=== PATIENT | male | born 1955 | race Two or more races ===

== ENCOUNTER 2024-03-01 09:55 | Inpatient (IN) | payer BC, MEDICAID ==
[~2024-03-01] VITALS: Ht 167.6 cm; Wt 76.2 kg
[2024-03-01] MEDS: SODIUM CHLORIDE 0.9% 1,000 ML IV ONE (10:24)
[2024-03-01 10:44] LABS: Basophils # (auto) 0 10 ^3/uL (0-0.2); Basophils % (auto) 0.6 % (0.0-2.0); Eosinophils # (auto) 0.1 10 ^3/uL (0-0.8); Eosinophils % (auto) 1.4 % (0.0-7.0); Hematocrit 46.5 % (41.0-53.0); Hemoglobin 15.8 g/dL (13.5-17.5); Lymphocytes # (auto) 1.7 10 ^3/uL (0.4-5.4); Lymphocytes % (auto) 23.4 % (10.0-50.0); Mean Corpuscular Hemoglobin 31.8 pg (28.0-32.0); Mean Corpuscular Volume 93.4 fL (80.0-100.0); Monocytes # (auto) 0.4 10 ^3/uL (0-1.3); Monocytes % (auto) 5.7 % (0.0-12.0); Neutrophils # (auto) 5.1 10 ^3/uL (1.6-8.6); Neutrophils % (auto) 68.9 % (37.0-80.0); Nucleated Red Blood Cells % 0.1 %; Red Blood Cells 4.98 10^6/uL (4.5-5.90); Red Cell Distribution Width 13.3 % (11.8-14.3); White Blood Cell 7.3 10^3/uL (4.4-10.8)
[2024-03-01 10:55] LABS: Chloride 100 mmol/L (98-107); Potassium 4.2 mmol/L (3.5-5.1); Sodium 135 mmol/L (136-145)
[2024-03-01 10:56] LABS: Anion Gap 5 (5-15); Calcium 10.1 mg/dL (8.5-10.1); Carbon Dioxide 30 mmol/L (20-30)
[2024-03-01 11:01] LABS: BUN/Creatinine Ratio 5.8 (10.0-20.0); Blood Urea Nitrogen 6 mg/dL (9-23); Glucose 287 mg/dL (74-106)
[2024-03-01 12:00] VITALS: PULSE 65; RESP 19; O2SAT 96
[2024-03-01] MEDS: IOHEXOL 350 MG/ML 100ML IJ ONE (15:09)
[2024-03-01] MEDS ORDERED: ACETAMINOPHEN 325 MG TAB PO PRN (18:45)
[2024-03-01] MEDS ORDERED: NITROGLYCERIN 0.4 MG SL TAB SL PRN (18:45)
[2024-03-01] MEDS ORDERED: MORPHINE SULFATE INJ 2 MG/ml SYRG IV PRN (18:45)
[2024-03-01] MEDS ORDERED: POTASSIUM CHL 20MEQ/100ML 100 ML IV SCH (18:45)
[2024-03-01] MEDS ORDERED: HYDROcodone-ACET 5/325MG TAB PO PRN (18:45)
[2024-03-01] MEDS ORDERED: ONDANSETRON HCL 4 MG/2 ML VIAL IV PRN (18:45)
[2024-03-01] MEDS: SODIUM CHLORIDE 0.9% 1,000 ML IV SCH (19:13)
[2024-03-01] MEDS ORDERED: CLOP75TA70 PO (23:15)
[2024-03-01] MEDS ORDERED: METF-372 PO (23:15)
[2024-03-01] MEDS ORDERED: LISI10TA34 PO (23:15)
[2024-03-01 23:16] VITALS: BP 168/69; PULSE 70; RESP 20; TEMP 98; O2SAT 96
[2024-03-02] VITALS (9 sets, daily range): BP systolic 142–166; BP diastolic 59–93; PULSE 66–101; RESP 16–22; TEMP 97.9–98.3; O2SAT 94–98
[2024-03-02] MEDS ORDERED: hydrALAZINE HCL 20 MG/ML VL IV PRN (00:15)
[2024-03-02] MEDS: ASPirin-EC 81 mg tab PO SCH (09:32)
[2024-03-02] MEDS: ATORVASTATIN 20 MG TAB PO SCH (09:33)
[2024-03-02] MEDS: ENOXAPARIN SOD 40 MG/0.4 ML SYRINGE SC SCH (09:33)
[2024-03-02] MEDS: CLOPIDOGREL BISULFATE 75 MG TAB PO ONE (11:52)
[2024-03-02 12:59] LABS: Triglycerides 323 mg/dL (< 150)
[2024-03-02 13:00] LABS: LDL Cholesterol 123 mg/dL (< 100)
[2024-03-02 13:01] LABS: Cholesterol 193 mg/dL (< 200); HDL Cholesterol 44 mg/dL (40-59)
[2024-03-03] VITALS (7 sets, daily range): BP systolic 107–172; BP diastolic 71–83; PULSE 61–79; RESP 16–20; TEMP 97.4–98.1; O2SAT 95–97
[2024-03-03 07:28] LABS: Triglycerides 246 mg/dL (< 150)
[2024-03-03 07:29] LABS: LDL Cholesterol 102 mg/dL (< 100)
[2024-03-03 07:30] LABS: Cholesterol 166 mg/dL (< 200); HDL Cholesterol 38 mg/dL (40-59)
[2024-03-03] MEDS: CLOPIDOGREL BISULFATE 75 MG TAB PO SCH (10:01)
[2024-03-03 11:19] LABS: INR 1.03 (0.9-1.15); Prothrombin Time 10.9 sec (9.3-11.8)
[2024-03-03] MEDS: INSULIN LANTUS (GLARGINE) 1 /0.01ml (100units/ml) SC SCH (21:20)
[2024-03-03] MEDS: ATORVASTATIN 20 MG TAB PO SCH (21:21)
[2024-03-04] VITALS (7 sets, daily range): BP systolic 145–175; BP diastolic 60–83; PULSE 59–90; RESP 16–18; TEMP 97.6–98.5; O2SAT 96–99
[2024-03-05] VITALS (7 sets, daily range): BP systolic 145–175; BP diastolic 58–83; PULSE 65–102; RESP 17–20; TEMP 97.9–98.6; O2SAT 96–99
[2024-03-05] MEDS ORDERED: DEXTROSE (50%) 50ML SYRG IV PRN (03:00)
[2024-03-05] MEDS: hydrALAZINE HCL 20 MG/ML VL IV PRN (03:22)
[2024-03-05 05:05] LABS: Basophils # (auto) 0.1 10 ^3/uL (0-0.2); Basophils % (auto) 0.7 % (0.0-2.0); Eosinophils # (auto) 0.2 10 ^3/uL (0-0.8); Eosinophils % (auto) 2.1 % (0.0-7.0); Hematocrit 41.9 % (41.0-53.0); Hemoglobin 14.7 g/dL (13.5-17.5); Lymphocytes # (auto) 2.3 10 ^3/uL (0.4-5.4); Mean Corpuscular Hemoglobin 32.6 pg (28.0-32.0); Mean Corpuscular Hgb Conc. 35.2 g/dL (32.0-36.0); Mean Corpuscular Volume 92.4 fL (80.0-100.0); Monocytes # (auto) 0.5 10 ^3/uL (0-1.3); Monocytes % (auto) 6.6 % (0.0-12.0); Neutrophils # (auto) 4.9 10 ^3/uL (1.6-8.6); Neutrophils % (auto) 61.6 % (37.0-80.0); Red Blood Cells 4.53 10^6/uL (4.5-5.90); Red Cell Distribution Width 12.9 % (11.8-14.3); White Blood Cell 7.9 10^3/uL (4.4-10.8)
[2024-03-05 05:16] LABS: INR 1.01 (0.9-1.15); Partial Thromboplastin Time 27.3 SEC (24.5-34.5); Prothrombin Time 10.7 sec (9.3-11.8)
[2024-03-05 05:23] LABS: Alanine Aminotransferase 34 U/L (7-40); Albumin 3.9 g/dL (3.2-4.8); Alkaline Phosphatase 65 U/L (46-116); Anion Gap 8 (5-15); Aspartate Aminotransferase 22 U/L (13-40); BUN/Creatinine Ratio 7.4 (10.0-20.0); Blood Urea Nitrogen 6 mg/dL (9-23); Calcium 8.9 mg/dL (8.7-10.4); Carbon Dioxide 25 mmol/L (20-30); Chloride 107 mmol/L (98-107); Potassium 3.5 mmol/L (3.5-5.1); Sodium 140 mmol/L (136-145)
[2024-03-05 05:24] LABS: Bilirubin, Total 0.7 mg/dL (0.2-1.0); Total Protein 6.4 g/dL (5.7-8.2)
[2024-03-05 05:35] LABS: Glucose 159 mg/dL (74-106)
[2024-03-05] MEDS: ACCU-CHEK COMFORT CURVE STRIP VI SCH (05:53)
[2024-03-05] MEDS: InsuLIN REG 1unit/0.01ml Soln (100units/ml) SC SCH (05:53)
[2024-03-05] MEDS: fentaNYL CITRATE 100 MCG/2 ML VL ONE (09:50)
[2024-03-05] MEDS: diphenhdrAMINE HCL 50 MG/1 ML VL IV ONE (09:50)
[2024-03-05] MEDS: MIDAZOLAM HCL 2MG/2ML 2ml VIAL (1mg/ml) ONE (09:55)
[2024-03-05] MEDS: LIDOCAINE VISCOUS 2% 15ML UD PO ONE (09:55)
[2024-03-05] MEDS: LIDOCAINE VISCOUS 2% 15ML UD ONE (09:55)
[2024-03-05] MEDS: MIDAZOLAM HCL 2MG/2ML 2ml VIAL (1mg/ml) IV ONE (09:59)
[2024-03-05] MEDS: fentaNYL CITRATE 100 MCG/2 ML VL IV ONE (09:59)
[2024-03-05] MEDS ORDERED: ATOR20TA50 PO (16:45)
[2024-03-05] MEDS ORDERED: APIX5TAB PO (16:45)
== END 2024-03-05 20:32 | disposition home or self-care (01) | DRG 65 ==
LOC: ER 09:55 → TELE 18:50 → TELE-WESTW 22:26
PROVIDERS: ADMIT Internal Medicine; ATTEND Internal Medicine
DX: I63.49 Cerebral infarction due to embolism of other cerebral artery (principal); G81.91 Hemiplegia, unspecified affecting right dominant side; E11.9 Type 2 diabetes mellitus without complications; I10 Essential (primary) hypertension; E78.5 Hyperlipidemia, unspecified; Z83.3 Family history of diabetes mellitus; Z82.49 Family history of ischemic heart disease and other diseases of the circulatory system; Z79.899 Other long term (current) drug therapy; Z80.42 Family history of malignant neoplasm of prostate; Z79.82 Long term (current) use of aspirin; Z79.02 Long term (current) use of antithrombotics/antiplatelets
CPT/HCPCS: 36415; 70450; 70496; 70551; 71045; 80048; 80053; 80061; 82962; 83036; 84484; 85025; 85610; 85730; 86850; 86900; 86901; 93005; 93306; 97110; 97116; 97163; 97530; 99152; G0378; J1815; J2250

== ENCOUNTER 2024-06-14 10:21 | Inpatient (IN) | payer BC, MEDICAID ==
[~2024-06-14] VITALS: Ht 167.6 cm; Wt 68.2 kg
[~2024-06-14 10:21] MED LIST: APIX5TAB PO; ATOR20TA50 PO; LISI10TA34 PO; METF-372 PO
[2024-06-14 11:31] LABS: Basophils # (auto) 0.1 10 ^3/uL (0-0.2); Basophils % (auto) 0.6 % (0.0-2.0); Eosinophils # (auto) 0.1 10 ^3/uL (0-0.8); Hemoglobin 14.6 g/dL (13.5-17.5); Lymphocytes # (auto) 1.5 10 ^3/uL (0.4-5.4); Mean Corpuscular Hemoglobin 31.7 pg (28.0-32.0); Mean Corpuscular Hgb Conc. 34.7 g/dL (32.0-36.0); Mean Corpuscular Volume 91.3 fL (80.0-100.0); Monocytes # (auto) 0.4 10 ^3/uL (0-1.3); Monocytes % (auto) 3.8 % (0.0-12.0); Neutrophils # (auto) 8.8 10 ^3/uL (1.6-8.6); Neutrophils % (auto) 80.6 % (37.0-80.0); Nucleated Red Blood Cells % 0.1 %; Platelet Count (auto) 356 10^3/uL (140-450); Red Cell Distribution Width 12.7 % (11.8-14.3); White Blood Cell 10.9 10^3/uL (4.4-10.8)
[2024-06-14 11:59] LABS: Alanine Aminotransferase 13 U/L (7-40); Albumin 4.2 g/dL (3.2-4.8); Alkaline Phosphatase 107 U/L (46-116); Anion Gap 5 (5-15); Aspartate Aminotransferase 9 U/L (13-40); BUN/Creatinine Ratio 9.9 (10.0-20.0); Blood Urea Nitrogen 10 mg/dL (9-23); Calcium 9.8 mg/dL (8.7-10.4); Carbon Dioxide 29 mmol/L (20-30); Chloride 102 mmol/L (98-107); Glucose 311 mg/dL (74-106); Magnesium 1.9 mg/dL (1.6-2.6); Potassium 4.7 mmol/L (3.5-5.1); Sodium 136 mmol/L (136-145)
[2024-06-14 12:00] LABS: Bilirubin, Total 0.5 mg/dL (0.2-1.0); Total Protein 6.8 g/dL (5.7-8.2)
[2024-06-14 12:12] LABS: Lactic Acid w/Reflex 2.1 mmol/L (0.4-2.0)
[2024-06-14] MEDS ORDERED: MORPHINE SULFATE INJ 2 MG/ml SYRG IV PRN (15:15)
[2024-06-14] MEDS ORDERED: NITROGLYCERIN 0.4 MG SL TAB SL PRN (15:15)
[2024-06-14] MEDS ORDERED: ONDANSETRON HCL 4 MG/2 ML VIAL IV PRN (15:15)
[2024-06-14] MEDS ORDERED: LORazepam 2MG/ML-1ML VIAL IV PRN (15:15)
[2024-06-14] MEDS ORDERED: DEXTROSE (50%) 50ML SYRG IV PRN (15:30)
[2024-06-14] MEDS: SODIUM CHLORIDE 0.9% 1,000 ML IV SCH (16:12)
[2024-06-14] MEDS: LORazepam 2MG/ML-1ML VIAL IV ONE (16:12)
[2024-06-14] MEDS: ACCU-CHEK COMFORT CURVE STRIP VI SCH (17:08)
[2024-06-14] MEDS: InsuLIN REG 1unit/0.01ml Soln (100units/ml) SC SCH (17:10)
[2024-06-14 17:30] LABS: COVID19 ANTIGEN SOFIA FIA NEGATIVE (NEGATIVE); Rapid Influenza A Negative (Negative); Rapid Influenza B Negative (Negative)
[2024-06-14 19:06] LABS: Lactic Acid w/Reflex 3.3 mmol/L (0.4-2.0)
[2024-06-14 20:00] VITALS: PULSE 80; RESP 22; O2SAT 97
[2024-06-14 22:06] VITALS: BP 145/77; PULSE 70; RESP 18; TEMP 98.5; O2SAT 97
[2024-06-14] MEDS ORDERED: ATOR10TA52 PO (22:12)
[2024-06-14] MEDS ORDERED: SODIUM CHLORIDE 0.9% 500 ML IV ONE (22:45)
[2024-06-14] MEDS: APIXABAN 5 MG TAB PO SCH (23:13)
[2024-06-14] MEDS: ATORVASTATIN 20 MG TAB PO SCH (23:15)
[2024-06-15 01:00] VITALS: BP 153/77; PULSE 71; RESP 16; TEMP 98.3; O2SAT 95
[2024-06-15 01:24] LABS: Urine Blood Negative /uL (Negative); Urine Clarity Clear (Clear); Urine Color Light-Yellow (Yellow); Urine Protein, UAD Negative (Negative); Urine Specific Gravity 1.007 (1.001-1.035); Urine Urobilinogen Normal (Negative); Urine WBC <1 /hpf (0 - 3); Urine pH 5.5 (5.0-9.0)
[2024-06-15 02:08] LABS: Urine Bacteria NONE SEEN /hpf (None Seen)
[2024-06-15 05:00] VITALS: BP 155/73; PULSE 71; RESP 17; TEMP 98.2; O2SAT 97
[2024-06-15 08:00] VITALS: PULSE 57
[2024-06-15 08:43] VITALS: BP 165/81; PULSE 76; RESP 17; TEMP 98; O2SAT 98
[2024-06-15] MEDS ORDERED: PATIENTS OWN MEDICATION (Lisinopril 1 TAB) PO SCH (10:00)
[2024-06-15] MEDS: FAMOTIDINE 20 MG TAB PO SCH (10:43)
[2024-06-15] MEDS: LISINOPRIL 5 MG TAB PO SCH (10:43)
[2024-06-15 13:12] VITALS: BP 154/71; PULSE 63; RESP 17; TEMP 98.1; O2SAT 98
[2024-06-15] MEDS ORDERED: APIX5TAB PO (16:50)
[2024-06-15] MEDS ORDERED: ATOR20TA50 PO (16:50)
[2024-06-15] MEDS ORDERED: KEP500T PO (16:50)
[2024-06-15] MEDS ORDERED: LISI10TA34 PO (16:50)
[2024-06-15] MEDS ORDERED: METF-372 PO (16:50)
[2024-06-15 17:11] VITALS: BP 169/72; PULSE 68; RESP 17; TEMP 98.1; O2SAT 99
== END 2024-06-15 18:19 | disposition home or self-care (01) | DRG 101 ==
LOC: ER 10:21 → TELE 15:16 → TELE-WESTW 22:05
PROVIDERS: ADMIT Hospitalist; ATTEND Hospitalist
DX: R56.9 Unspecified convulsions (principal); G45.9 Transient cerebral ischemic attack, unspecified; E87.20 Acidosis, unspecified; I69.398 Other sequelae of cerebral infarction; I10 Essential (primary) hypertension; E11.65 Type 2 diabetes mellitus with hyperglycemia; Z79.84 Long term (current) use of oral hypoglycemic drugs; Z83.3 Family history of diabetes mellitus; Z82.49 Family history of ischemic heart disease and other diseases of the circulatory system; Z80.42 Family history of malignant neoplasm of prostate; Z79.899 Other long term (current) drug therapy
CPT/HCPCS: 36415; 70450; 70551; 71045; 80053; 81001; 82550; 82962; 83605; 83735; 84484; 85025; 87426; 87804; 93005; 96374; G0378; J1815

== ENCOUNTER 2025-09-02 15:09 | Inpatient (IN) | payer BC, MEDICAID ==
[~2025-09-02] VITALS: Ht 167.6 cm; Wt 65.0 kg
[~2025-09-02 15:09] MED LIST changes: +KEP500T PO
--- NOTE | 2025-09-02 15:37 | ED.PDOC ---
HPI (NEURO) HPI Comments 70 year old male with PMHx HTN, DM, CVA-x3 presents to the ED with a chief complaint of RT sided weakness onset today around 10:00. Patient states he woke up this morning experiencing RT sided weakness, neck stiffness, rates pain 8/10. Family noticed patient began experiencing slurred speech, RT sided facial drooping about 30 minutes prior to ED arrival, has now resolved, is still experiencing RT sided weakness. Patient is concerned for possible CVA, has experienced 3 in the past. Denies dizziness, headache, fever, chills, fall, head injury, nausea, vomiting, diarrhea. No other symptoms or modifying factors present at this time. Chief Complaint: Right Sided Weakness Time Seen by MD: 15:25 Primary Care Provider: UNKNOWN Reviewed Notes: Medications, Allergies Information Source: Patient, Relative Mode of Arrival: Wheelchair Severity: Moderate Timing: Minutes Duration: Since onset Prehospital treatment: None Weakness Location: (R) Sided Onset: At rest Circumstances: Spontaneous Symptoms: Weakness, Slurred speech History of: CVA, DM, Hypertension Past Medical History PAST MEDICAL HISTORY: CVA, DM, HTN Surgical History: Denies all surgeries Family History Family History: Unknown Social History Smoker: Non-Smoker Alcohol: Denies ETOH Use Drugs: Denies Drug Use Lives In: Home Constitutional: denies: chills, diaphoresis, fatigue, fever, malaise, sweats, weakness, others EENTM: denies: blurred vision, double vision, ear bleeding, ear discharge, ear drainage, ear pain, ear ringing, eye pain, eye redness, hearing loss, mouth pain, mouth swelling, nasal discharge, nose bleeding, nose congestion, nose pain, photophobia, tearing, throat pain, throat swelling, voice changes, others Respiratory: denies: cough, hemoptysis, orthopnea, SOB at rest, shortness of breath, SOB with excertion, stridor, wheezing, others Cardiovascular: denies: chest pain, dizzy spells, diaphoresis, Dyspnea on exertion, edema, irregular heart beat, left arm pain, lightheadedness, palpitations, PND, syncope, others Gastrointestinal: denies: abdomen distended, abdominal pain, blood streaked bowels, constipated, diarrhea, dysphagia, difficulty swallowing, hematemesis, melena, nausea, poor appetite, poor fluid intake, rectal bleeding, rectal pain, vomiting, others Genitourinary: denies: burning, dysuria, flank pain, frequency, hematuria, incontinence, penile discharge, penile sore, pain, testicle pain, testicle swelling, urgency, others Neurological: reports: right sided weakness, speech problems, others (facial drooping); denies: dizziness, fainting, headache, left sided numbness, left sided weakness, numbness, paresthesia, pre-existing deficit, right sided numbness, seizure, tingling, tremors, weakness Musculoskeletal: denies: back pain, gout, joint pain, joint swelling, muscle pain, muscle stiffness, neck pain, others Integumetry: denies: bruises, change in color, change in hair/nails, dryness, laceration, lesions, lumps, rash, wounds, others Allergic/Immunocompromised: denies: Difficulty Healing, Frequent Infections, Hives, Itching, others Hematologic/Lymphatic: denies: anemia, blood clots, easy bleeding, easy bruising, swollen glands, others Endocrine: denies: excessive hunger, excessive sweating, excessive thirst, excessive urination, flushing, intolerance to cold, intolerance to heat, unexplained weight gain, unexplained weight loss, others Psychiatric: denies: anxiety, bipolar disorder, depression, hopeless, panic disorder, schizophrenia, sleepless, suicidal, others All Other Systems: Reviewed and Negative Physical Exam General Appearance: Normal HEENT: Normal ENT Inspection, Pharynx Normal, TMs Normal Neck: Full Range of Motion, Non-Tender, Normal, Normal Inspection Respiratory: Chest Non-Tender, Lungs Clear, No Accessory Muscle Use, No Respiratory Distress, Normal Breath Sounds Cardiovascular: No Edema, No JVD, No Murmur, No Gallop, Normal Peripheral Pulses, Regular Rate/Rhythm Breast Exam: Deferred Gastrointestinal: No Organomegaly, Non Tender, No Pulsatile Mass, Normal Bowel Sounds, Soft Genitalia: Deferred Pelvic: Deferred Rectal: Deferred Extremities: No calf tenderness, Normal capillary refill, Normal inspection, Normal range of motion, Non-tender, No pedal edema Musculoskeletal : Apperance: Normal Neurologic: Alert, family law mediator II-XII nml as Tested, No Motor Deficits, Normal Affect, Normal Mood, No Sensory Deficits Cerebellar Function: Normal Reflexes: Normal Skin: Dry, Normal Color, Warm Lymphatic: No Adenopathy Was a procedure done? Was a procedure done?: No Differential Diagnosis (SZ) Seizure: N/A CVA: CVA, Delirium Tremens, DKA, Encephalopathy, Hypoglycemia General Weakness: Labyrinthitis Headache: Mass Lesion X-Ray, Labs, Meds, VS Vital Signs Date Time Temp Pulse Resp B/P (MAP) Pulse Ox O2 Delivery O2 Flow Rate FiO2 09/02/25 15:27 75 09/02/25 15:14 98.1 78 13 163/92 99 98.1 Lab Test 09/02/25 16:08 Range/Units White Blood Count 9.0 4.4-10.8 10^3/uL Red Blood Count 4.78 4.5-5.90 10^6/uL Hemoglobin 14.8 13.5-17.5 g/dL Hematocrit 43.4 41.0-53.0 % Mean Corpuscular Volume 90.8 80.0-100.0 fL Mean Corpuscular Hemoglobin 31.0 28.0-32.0 pg Mean Corpuscular Hemoglobin Concent 34.1 32.0-36.0 g/dL Red Cell Distribution Width 13.2 11.8-14.3 % Platelet Count 357 140-450 10^3/uL Mean Platelet Volume 7.1 6.9-10.8 fL Neutrophils (%) (Auto) 67.3 37.0-80.0 % Lymphocytes (%) (Auto) 24.8 10.0-50.0 % Monocytes (%) (Auto) 5.1 0.0-12.0 % Eosinophils (%) (Auto) 1.9 0.0-7.0 % Basophils (%) (Auto) 0.9 0.0-2.0 % Neutrophils # (Auto) 6.1 1.6-8.6 10 ^3/uL Lymphocytes # (Auto) 2.2 0.4-5.4 10 ^3/uL Monocytes # (Auto) 0.5 0-1.3 10 ^3/uL Eosinophils # (Auto) 0.2 0-0.8 10 ^3/uL Basophils # (Auto) 0.1 0-0.2 10 ^3/uL Nucleated Red Blood Cells 0.0 % Prothrombin Time 10.2 9.3-11.8 sec Prothrombin Time INR 0.96 0.9-1.15 Activated Partial Thromboplast Time 29.8 24.5-34.5 SEC Sodium Level 139 136-145 mmol/L Potassium Level 4.8 3.5-5.1 mmol/L Chloride Level 101 98-107 mmol/L Carbon Dioxide Level 29 20-31 mmol/L Anion Gap 9 5-15 Blood Urea Nitrogen 8 L 9-23 mg/dL Creatinine 0.87 0.700-1.30 mg/dL Glomerular Filtration Rate Calc 93 >90 mL/min BUN/Creatinine Ratio 9.2 L 10.0-20.0 Serum Glucose 194 H 74-106 mg/dL Calcium Level 9.5 8.7-10.4 mg/dL Magnesium Level 2.3 1.6-2.6 mg/dL Total Bilirubin 0.3 0.2-1.0 mg/dL Aspartate Amino Transferase (AST) 12 L 13-40 U/L Alanine Aminotransferase (ALT) < 9 7-40 U/L Alkaline Phosphatase 96 46-116 U/L Troponin I High Sensitivity 5 </=54 ng/L B-Type Natriuretic Peptide 33.69 0-100 pg/mL Total Protein 7.5 5.7-8.2 g/dL Albumin 4.5 3.2-4.8 g/dL Time of 1ST Reevaluation: 15:55 Reevaluation 1ST: Unchanged Patient Education/Counseling: Diagnosis, Treatment, Need For Follow Up Family Education/Counseling: Diagnosis, Treatment, Need For Follow Up Departure 1 Departure Time of Disposition: 18:12 (Patient with concern for CVA. CT head is benign. Chest x-ray is benign. Labs are benign. Patient is still with intermittent symptoms. We will admit patient for further workup and expert consultation) Impression: Primary Impression: Suspected cerebrovascular accident (CVA) Additional Impressions: Acute metabolic encephalopathy Generalized weakness Disposition: ADMITTED INPATIENT Admit to: Tele Condition: Guarded Critical Care Note Critical Care Time?: Yes Critical care comment: Suspected CVA Authorized and Performed by: Davina Urena MD Total critical care time: Approximately 37 minutes Due to a high probability of clinically significant, life threatening deterioration, the patient required my highest level of preparedness to intervene emergently and I personally spent this critical care time directly and personally managing the patient. This critical care time included obtaining a history; examining the patient; pulse oximetry; ordering and review of studies; arranging urgent treatment with development of a management plan; evaluation of patient's response to treatment; frequent reassessment; and, discussions with other providers. This critical care time was performed to assess and manage the high probability of imminent, life-threatening deterioration that could result in multi-organ failure. It was exclusive of separately billable procedures and treating other patients and teaching time. Please see my other sections and the rest of the note for further information on patient assessment and treatment. Stability Stability form required: No I personally scribed for DAVINA URENA MD ([email or web address]) on 09/02/25 at 15:37. Electronically submitted by Esperanza Pena ([email or web address]). DAVINA URENA MD Sep 02, 2025 15:37
--- NOTE | 2025-09-02 16:20 | DVH ---
CHEST RADIOGRAPH Indication: c/f cva Technique: Single frontal view of the chest was obtained Comparison: XY CHEST PORTABLE on DOS: 06/14/24, XY CHEST XRAY 1 VIEW on DOS: 03/05/24 FINDINGS: Lines and Tubes: None Lungs: No focal consolidation. Pleura: No effusion. No pneumothorax. Cardiomediastinal contours: Unremarkable Bones: No acute osseous abnormality. IMPRESSION: 1. No acute cardiopulmonary disease. 2. Significant change from 03/05/2024.
--- NOTE | 2025-09-02 16:30 | DVH ---
CT brain without contrast CLINICAL INDICATION: dysarthria Comparison: 03/01/2024 FINDINGS: The study was performed in a multidetector scanner. This study performed taking axial images from the skull base up to the vertex. Both brain and bone windows are photographed. Dose lowering techniques have been used including automated exposure control and adjustment of mA and/or KV according to patient size. No intraparenchymal hemorrhage or edema. Mild cortical sulcal prominence Faint low-density changes in the periventricular white matter No hydrocephalus. No midline shift. No extra-axial fluid collections. Skull intact. There is mucosal filling of the right maxillary sinus IMPRESSION: 1. No acute intracranial pathology compared to old exam.. 2. Right maxillary sinus disease Results of this stroke CT were telephoned to the referring physician Dr. Urena at 4:20 p.m. [place] daylight time Computed Tomographic Radiation Dosimetry Report: Total CTDI vol = 53.99mGy Total DLP = 863.9mGy-cm All CT scans at this medical facility are performed using dose modulation techniques as appropriate to a performed exam including the following: Automated exposure control was utilized; adjustment of the MA and/or KvP according to patient size; and use of iterative reconstruction technique.
[2025-09-02 16:31] LABS: Hematocrit 43.4 % (41.0-53.0); Hemoglobin 14.8 g/dL (13.5-17.5); Mean Corpuscular Hemoglobin 31.0 pg (28.0-32.0); Mean Corpuscular Volume 90.8 fL (80.0-100.0); Nucleated Red Blood Cells % 0.0 %
[2025-09-02 16:42] LABS: Albumin 4.5 g/dL (3.2-4.8); Alkaline Phosphatase 96 U/L (46-116); Anion Gap 9 (5-15); BUN/Creatinine Ratio 9.2 (10.0-20.0); Bilirubin, Total 0.3 mg/dL (0.2-1.0); Calcium 9.5 mg/dL (8.7-10.4); Carbon Dioxide 29 mmol/L (20-31); Chloride 101 mmol/L (98-107); Magnesium 2.3 mg/dL (1.6-2.6); Potassium 4.8 mmol/L (3.5-5.1); Sodium 139 mmol/L (136-145); Total Protein 7.5 g/dL (5.7-8.2)
[2025-09-02 16:46] LABS: INR 0.96 (0.9-1.15); Partial Thromboplastin Time 29.8 SEC (24.5-34.5); Prothrombin Time 10.2 sec (9.3-11.8)
[2025-09-02 16:49] LABS: Alanine Aminotransferase < 9 U/L (7-40); Blood Urea Nitrogen 8 mg/dL (9-23); Glucose 194 mg/dL (74-106)
--- NOTE | 2025-09-02 23:27 | DVH ---
INDICATION: rt side weakness COMPARISON: CT STROKE CTH on DOS: 09/02/25, MRI BRAIN HEAD WO CONTRAST on DOS: 06/15/24, CT HEAD WITHOUT CONTRAST on DOS: 06/14/24, MRI BRAIN HEAD WO CONTRAST on DOS: 03/02/24, CT ANGIO HEAD/NECK on DOS: 03/01/24 TECHNIQUE: CTA head without and with intravenous contrast. CTA neck with intravenous contrast. 3D image postprocessing was performed on a dedicated workstation and images were used for interpretation and reporting. Radiation Dose Information: CT Dose: CTDI volume is 22.1 mGy. Dose-length product is 809.8 mGy*cm FINDINGS: There is multifocal atherosclerotic narrowing of the intracranial vasculature. There is moderate to severe stenosis of the right proximal M1 branch of the middle cerebral artery. There is multifocal high-grade stenoses of the intradural portion of the left vertebral artery. There is focal moderate maria elena rowing of the basilar artery. There is multifocal narrowing of the posterior cerebral arteries, suboptimally assessed. There is no aneurysm. The visualized thoracic aortic arch and proximal great vessels are unremarkable. The left common, internal and external carotid arteries are within normal limits. There is calcified plaque about the right carotid bulb. Calcified plaque of the origin of the right proximal internal carotid artery contributes to approximately 40% stenosis. The cervical segments of the right and left vertebral arteries are within normal limits. The limited visualized lung apices are clear. The surrounding soft tissues and osseous structures are otherwise unremarkable. IMPRESSION: 1. Multifocal atherosclerotic narrowing of the intracranial vasculature as detailed. Consider MRA in further assessment as clinically indicated. 2. 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 3. 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 All CT scans at this medical facility are performed using dose modulation techniques as appropriate to a performed exam including the following: Automated exposure control was utilized; adjustment of the MA and/or KV according to patient size; and use of iterative reconstruction technique.
[2025-09-03] VITALS (8 sets, daily range): BP systolic 140–166; BP diastolic 53–91; PULSE 64–91; RESP 13–19; TEMP 97.3–98; O2SAT 97–99
[2025-09-03] MEDS ORDERED: DEXTROSE (50%) 50ML SYRG IV PRN (01:00)
[2025-09-03] MEDS: SODIUM CHLORIDE 0.9% 1,000 ML IV SCH (01:00)
[2025-09-03] MEDS ORDERED: NITROGLYCERIN 0.4 MG SL TAB SL PRN (01:00)
[2025-09-03] MEDS ORDERED: ONDANSETRON HCL 4 MG/2 ML VIAL IV PRN (01:00)
[2025-09-03] MEDS ORDERED: MORPHINE SULFATE INJ 2 MG/ml SYRG IV PRN (01:00)
[2025-09-03] MEDS ORDERED: ACETAMINOPHEN 325 MG TAB PO PRN (01:00)
--- NOTE | 2025-09-03 01:00 | DVHHP2 ---
ANASTASIA WHARTON NP 09/03/25 0100: History of Present Illness Reason for Visit: slurred speech , facial droop History of Present Illness 70-year-old male with past medical history of DM, hypertension, hyperlipidemia, CVA x3 presents with complaints of slurred speech, generalized weakness, facial droop x1 day. Patient endorses he woke up feeling weak in the morning was having difficulty with balance. Went out to breakfast with his family when suddenly began to experience slurred speech and right-sided facial droop. Prompting him to go to the emergency department. Patient's daughter did endorsed that the patient had not been taking his clopidogrel for about 4 days due to going on a trip and forgetting to take his medication with him. At the time of this evaluation symptoms have improved. During the emergency department evaluation CT of the head had no acute intracranial pathology compared to a previous exam. Right maxillary sinus disease. CT angio head and neck was positive for multifocal atherosclerotic narrowing of the intracranial vasculature. 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 Multifocal stenosis of the intradural left vertebral artery. CBC is unremarkable. CMP is unremarkable. At this time patient denies fevers, chills, dizziness, headaches, visual disturbance, shortness of breath, chest pain, nausea, vomiting, leg swelling. Facial droop and slurred speech has improved. Cardiovascular: HTN, hyperipidemia Endocrine: Diabetes, Hypothyroidism Smoke: No ALCOHOL: none Drugs: None Lives: with Family Review of Systems Constitutional: Yes: Weakness; No: Fever, Chills, Sweats, Malaise, Other Eyes: No: Pain, Vision change, Conjunctivae inflammation, Eyelid inflammation, Other, Redness ENT: No: Ear pain, Ear discharge, Nose pain, Nose discharge, Nose congestion, Mouth pain, Mouth swelling, Throat pain, Throat swelling, Other Respiratory: No: Cough, Dry, Shortness of breath, SOB with excertion, Wheezing, Hemoptysis, Pleuritic Pain, Sputum, Wheezing, Other Cardiovascular: No: Chest Pain, Palpitations, Orthopnea, Paroxysmal Noc. Dyspnea, Edema, Lt Headedness, Other Gastrointestinal: No: Nausea, Vomiting, Abdominal Pain, Diarrhea, Constipation, Melena, Hematochezia, Other Genitourinary: No Dysuria, No Frequency, No Incontinence, No Hematuria, No Ret ention, No Other Musculoskeletal: No: other, neck pain, shoulder pain, arm pain, back pain, hand pain, leg pain, foot pain Skin: No: Rash, Lesions, Jaundice, Bruising, Other Neurological: Weakness, Incoordination, Change in speech, Other (Facial droop); No: Numbness, Confusion, Seizures Allergies: Coded Allergies: NO KNOWN ALLERGIES (Unverified , 03/01/24) Exam Vital Signs Vital Signs Date Time Temp Pulse Resp B/P (MAP) Pulse Ox O2 Delivery O2 Flow Rate FiO2 09/02/25 15:27 75 09/02/25 15:14 98.1 13 163/92 99 98.1 General Appearance: Alert, Oriented X3, Cooperative, No acute distress HEENT: Atraumatic, PERRLA, EOMI Respiratory: Clear to auscultation, Normal air movement Cardiovascular: Regular rate, Normal S1, Normal S2 Abdominal: Normal bowel sounds, Soft, No tenderness Extremities: No clubbing, No cyanosis Skin: No rashes Neuro: Normal speech, Strength at 5/5 X4 ext, Sensation intact Psych/Mental Status: Mental status NL, Mood NL Labs/Xrays Labs Test 09/02/25 19:36 09/02/25 16:08 Range/Units Troponin I High Sensitivity 5 </=54 ng/L White Blood Count 9.0 4.4-10.8 10^3/uL Red Blood Count 4.78 4.5-5.90 10^6/uL Hemoglobin 14.8 13.5-17.5 g/dL Hematocrit 43.4 41.0-53.0 % Mean Corpuscular Volume 90.8 80.0-100.0 fL Mean Corpuscular Hemoglobin 31.0 28.0-32.0 pg Mean Corpuscular Hemoglobin Concent 34.1 32.0-36.0 g/dL Red Cell Distribution Width 13.2 11.8-14.3 % Platelet Count 357 140-450 10^3/uL Mean Platelet Volume 7.1 6.9-10.8 fL Neutrophils (%) (Auto) 67.3 37.0-80.0 % Lymphocytes (%) (Auto) 24.8 10.0-50.0 % Monocytes (%) (Auto) 5.1 0.0-12.0 % Eosinophils (%) (Auto) 1.9 0.0-7.0 % Basophils (%) (Auto) 0.9 0.0-2.0 % Neutrophils # (Auto) 6.1 1.6-8.6 10 ^3/uL Lymphocytes # (Auto) 2.2 0.4-5.4 10 ^3/uL Monocytes # (Auto) 0.5 0-1.3 10 ^3/uL Eosinophils # (Auto) 0.2 0-0.8 10 ^3/uL Basophils # (Auto) 0.1 0-0.2 10 ^3/uL Nucleated Red Blood Cells 0.0 % Prothrombin Time 10.2 9.3-11.8 sec Prothrombin Time INR 0.96 0.9-1.15 Activated Partial Thromboplast Time 29.8 24.5-34.5 SEC Sodium Level 139 136-145 mmol/L Potassium Level 4.8 3.5-5.1 mmol/L Chloride Level 101 98-107 mmol/L Carbon Dioxide Level 29 20-31 mmol/L Anion Gap 9 5-15 Blood Urea Nitrogen 8 L 9-23 mg/dL Creatinine 0.87 0.700-1.30 mg/dL Glomerular Filtration Rate Calc 93 >90 mL/min BUN/Creatinine Ratio 9.2 L 10.0-20.0 Serum Glucose 194 H 74-106 mg/dL Calcium Level 9.5 8.7-10.4 mg/dL Magnesium Level 2.3 1.6-2.6 mg/dL Total Bilirubin 0.3 0.2-1.0 mg/dL Aspartate Amino Transferase (AST) 12 L 13-40 U/L Alanine Aminotransferase (ALT) < 9 7-40 U/L Alkaline Phosphatase 96 46-116 U/L B-Type Natriuretic Peptide 33.69 0-100 pg/mL Total Protein 7.5 5.7-8.2 g/dL Albumin 4.5 3.2-4.8 g/dL SEPSIS Sepsis Screen Date sepsis recognized/suspect: Sep 02, 2025 Time Sepsis recognized/suspect: 1513 Recent Procedure: No On Antibiotic Therapy: No Respiratory Rate >20: No Heart Rate >90: No Temp<36 C (96.8 F) or >38.3 C: No SBP <90 or MAP <65 mmHG: No New Acute Mental Status Change: No Is the patient on CPAP, BIPAP,: No Physician Orders Angio Head/Neck (09/02/25 22:31) Admit (09/03/25:50) Code Status (09/03/25:50) Vital Signs .PER UNIT PROTOCOL (09/03/25:) Review Orders With Adm. (09/03/2550) Encourage Activity As Tolerate (09/03/25:50) Consistent Carb(Ccho)Diabetes (09/03/25 Breakfast) Sodium Chloride 0.9% (09/03/25:00) Oxygen By Face Mask (09/03/2550) Docusate Sodium Capsule (Colace Capsule) (09/03/25:00) Acetaminophen Tablet (Tylenol Tablet) (09/03/25:) Notify Md Of Changes From Base (09/03/25:50) Advance Directive (09/03/25:50) Echo 2d Mode Cardiac Dop (09/03/25:50) Basic Metabolic Panel (09/03/25 05:00) Basic Metabolic Panel (09/04/25 05:00) Basic Metabolic Panel (09/05/25 05:00) Complete Blood Count (09/03/25 05:00) Complete Blood Count (09/04/25 05:00) Complete Blood Count (09/05/25 05:00) Patient Condition (09/03/25:50) Allergies (09/03/2550) Ondansetron Hcl (Zofran) (09/03/25:00) Sequential Compression Device (09/03/25 ) Nitroglycerin Sublingual (Ntrostat Subli (09/03/25:00) Morphine Sulfate Injection (09/03/25:00) Stat Ekg For Chest Pain (09/03/25:50) Notify Md Of Changes From Base (09/03/25:50) Copy Operator For 24 Hours (09/03/25:50) Emergency Dysrhythmia Protocol (09/03/25) Rhythm Strips Once Every Shift (09/03/25:50) Oxygen By Nasal Cannula (09/03/25:50) Glucose Blood (Accu-Chek Comfort Curve T (09/03/25 07:00) Mild Sliding Scale (09/03/25 07:00) Dextrose 50% Syringe (09/03/25 01:00) Clopidogrel Bisulfate (Plavix) (09/03/25 10:00) Atorvastatin (Lipitor) (09/03/25 10:00) Brain Head Wo Contrast (09/03/25 00:50) Pt Request For Service (09/03/25 00:50) Aspirin Enteric Coated Tablet (Ecotrin E (09/03/25 10:00) Lisinopril Tablet (Zestril Tablet) (09/03/25 10:00) Laboratory Tests Test 09/02/25 16:08 White Blood Count 9.0 10^3/uL (4.4-10.8) Assessment/Plan Assessment/Plan TIA 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 MRI brain. Continue oral anticoagulation therapy. ASA Statin. IV ABX Blood glucose checks with regular insulin sliding scale coverage Continue home medication. Physical therapy evaluation GI ppx Pepcid / dvt ppx on oral anticoagulation. Plan discussed with: Patient, Daughter My Orders Orders - ANASTASIA WHARTON NP Procedure Category Date Status Time Admit ADMIT 09/03/25 Transmitted 00:50 Code Status CODE 09/03/25 Transmitted 00:50 Vital Signs VENECIA 09/03/25 In Process 00:50 Review Orders With VENECIA 09/03/25 In Process Adm. 00:50 Encourage Activity As VENECIA 09/03/25 In Process Tolerate 00:50 Consistent DIET 09/03/25 Transmitted Carb(Ccho)Diabetes Breakfast Sodium Chloride 0.9% PHA 09/03/25 Logged 01:00 Oxygen By Face Mask RT 09/03/25 Transmitted 00:50 Docusate Sodium PHA 09/03/25 Transmitted Capsule (Colace 01:00 Acetaminophen Tablet PHA 09/03/25 Transmitted (Tylenol Tablet) 01:00 Notify Of Changes VENECIA 09/03/25 In Process From Base 00:50 Advance Directive VENECIA 09/03/25 In Process 00:50 Echo 2d Mode Cardiac US 09/03/25 Transmitted DOP 00:50 Basic Metabolic Panel LAB 09/03/25 Transmitted 05:00 Basic Metabolic Panel LAB 09/04/25 Verified 05:00 Basic Metabolic Panel LAB 09/05/25 Verified 05:00 Complete Blood Count LAB 09/03/25 Transmitted 05:00 Complete Blood Count LAB 09/04/25 Verified 05:00 Complete Blood Count LAB 09/05/25 Verified 05:00 Patient Condition ORDERS 09/03/25 Transmitted 00:50 Allergies VENECIA 09/03/25 Transmitted 00:50 Ondansetron Hcl PHA 09/03/25 Transmitted (Zofran) 01:00 Sequential [facility] 09/03/25 Transmitted Compression Device Nitroglycerin [facility] 09/03/25 Transmitted Sublingual (Ntrostat 01:00 Morphine Sulfate PHA 09/03/25 Transmitted Injection 01:00 Stat Ekg For Chest [facility] 09/03/25 Transmitted Pain 00:50 Notify Md Of Changes [facility] 09/03/25 Transmitted From Base 00:50 Copy Operator For [facility] 09/03/25 Transmitted 24 Hours 00:50 Emergency Dysrhythmia [facility] 09/03/25 Transmitted Protocol 00:50 Rhythm Strips Once [facility] 09/03/25 Transmitted Every Shift 00:50 Oxygen By Nasal RT 09/03/25 Transmitted Cannula 00:50 Glucose Blood PHA 09/03/25 Transmitted (Accu-Chek Comfort 07:00 Mild Sliding Scale PHA 09/03/25 Transmitted 07:00 Dextrose 50% Syringe PHA 09/03/25 Transmitted 01:00 Clopidogrel Bisulfate PHA 09/03/25 Transmitted (Plavix) 10:00 Atorvastatin (Lipitor) PHA 09/03/25 Transmitted 10:00 Brain Head Wo Contrast MRI 09/03/25 Transmitted 00:50 Pt Request For Service PT 09/03/25 Transmitted 00:50 Aspirin Enteric PHA 09/03/25 Transmitted Coated Tablet 10:00 Lisinopril Tablet [facility] 09/03/25 Transmitted (Zestril Tablet) 10:00 Date of Service: Sep 03, 2025 Billing Provider: MOMO RIZZO MD Common Visit Codes: NOT BILLABLE MOMO RIZZO MD 09/03/25 1649: Review of Systems Allergies: Coded Allergies: NO KNOWN ALLERGIES (Unverified , 03/01/24) ANASTASIA WHARTON NP Sep 03, 2025 01:00 MOMO RIZZO MD Sep 03, 2025 16:49
[2025-09-03] MEDS ORDERED: CLOP75TA70 PO (02:13)
[2025-09-03] MEDS ORDERED: LISI20TA56 PO (02:13)
[2025-09-03] MEDS ORDERED: hydrALAZINE HCL 20 MG/ML VL IV PRN (03:15)
[2025-09-03] MEDS: InsuLIN REG 1unit/0.01ml Soln (100units/ml) SC SCH (06:24)
[2025-09-03] MEDS: ACCU-CHEK COMFORT CURVE STRIP VI SCH (06:27)
[2025-09-03 06:39] LABS: Hematocrit 42.0 % (41.0-53.0); Hemoglobin 14.5 g/dL (13.5-17.5); Mean Corpuscular Hemoglobin 31.5 pg (28.0-32.0); Mean Corpuscular Volume 91.4 fL (80.0-100.0); Nucleated Red Blood Cells % 0.0 %
[2025-09-03 06:48] LABS: Chloride 103 mmol/L (98-107); Potassium 4.2 mmol/L (3.5-5.1); Sodium 141 mmol/L (136-145)
[2025-09-03 06:49] LABS: Anion Gap 12 (5-15); Calcium 9.4 mg/dL (8.7-10.4); Carbon Dioxide 26 mmol/L (20-31)
[2025-09-03 06:54] LABS: BUN/Creatinine Ratio 9.1 (10.0-20.0)
[2025-09-03 06:57] LABS: Blood Urea Nitrogen 8 mg/dL (9-23); Glucose 167 mg/dL (74-106)
--- NOTE | 2025-09-03 09:27 | DVH ---
PROCEDURE: MRI BRAIN HEAD WO CONTRAST INDICATION: cva / tia EXAM DATE: 09/03/2025 08:36 AM COMPARISON: CT ANGIO HEAD/NECK on DOS: 09/02/25, CT STROKE CTH on DOS: 09/02/25, MRI BRAIN HEAD WO CONTRAST on DOS: 06/15/24, CT HEAD WITHOUT CONTRAST on DOS: 06/14/24, MRI BRAIN HEAD WO CONTRAST on DOS: 03/02/24 TECHNIQUE: MRI of the brain without intravenous contrast. FINDINGS: Multiple tiny subcentimeter foci of restricted diffusion are present in the high right frontal lobe (mid to posterior). There is no evidence of acute intracranial hemorrhage, extra-axial collection, mass effect, midline shift, herniation or hydrocephalus. The ventricles, sulci and cisterns appear age appropriate. There is nonspecific periventricular and subcortical T2/FLAIR hyperintense white matter changes. Differential includes: Demyelinating disease, chronic microangiopathic change, residua of migraine headaches or other postinflammatory residua. There are no signal abnormalities on the susceptibility weighted sequences. The major vascular flow voids are present. The visualized paranasal sinuses and mastoid air cells are clear. The surrounding soft tissues and osseous structures are unremarkable. IMPRESSION: Multiple tiny subcentimeter foci of restricted diffusion in the high right frontal lobe (mid to posterior). Distribution is similar to MRI dated 03/02/2024. Differential includes: Acute/subacute infarcts versus subacute demyelinating disease. Nonspecific periventricular and subcortical T2/FLAIR hyperintense white matter changes. Differential includes: Demyelinating disease, chronic microangiopathic change, residua of migraine headaches or other postinflammatory residua.
[2025-09-03] MEDS: CLOPIDOGREL BISULFATE 75 MG TAB PO SCH (10:09)
[2025-09-03] MEDS: FAMOTIDINE (10MG/ML) 2ML VL IV SCH (10:09)
[2025-09-03] MEDS: ATORVASTATIN 20 MG TAB PO SCH (10:09)
[2025-09-03] MEDS: ASPirin-EC 81 mg tab PO SCH (10:09)
[2025-09-03] MEDS: LISINOPRIL 20 MG TAB PO SCH (10:10)
[2025-09-04] VITALS (7 sets, daily range): BP systolic 147–155; BP diastolic 65–83; PULSE 61–80; RESP 16–18; TEMP 36.8; O2SAT 97–98
[2025-09-04 06:34] LABS: Hematocrit 44.2 % (41.0-53.0); Hemoglobin 15.4 g/dL (13.5-17.5); Mean Corpuscular Hemoglobin 31.5 pg (28.0-32.0); Mean Corpuscular Volume 90.4 fL (80.0-100.0); Nucleated Red Blood Cells % 0.1 %
[2025-09-04 06:47] LABS: Chloride 102 mmol/L (98-107); Potassium 4.2 mmol/L (3.5-5.1); Sodium 145 mmol/L (136-145)
[2025-09-04 06:48] LABS: Anion Gap 12 (5-15)
[2025-09-04 06:49] LABS: Calcium 9.8 mg/dL (8.7-10.4)
[2025-09-04 06:54] LABS: BUN/Creatinine Ratio 9.3 (10.0-20.0)
[2025-09-04 06:56] LABS: Blood Urea Nitrogen 8 mg/dL (9-23); Carbon Dioxide 31 mmol/L (20-31); Glucose 108 mg/dL (74-106)
[2025-09-04] MEDS ORDERED: ASPI-543 PO (14:49)
--- NOTE | 2025-09-04 14:51 | DVHDS2 ---
Discharge Summary Date of Admission Sep 03, 2025 at 00:50 Date of Discharge: Sep 04, 2025 Labs/Diagnostic Data: Laboratory Results Test 09/04/25 12:15 09/04/25 04:52 09/02/25 19:36 09/02/25 16:08 POC Glucose 195 mg/dl (70-106) White Blood Count 8.3 10^3/uL (4.4-10.8) Red Blood Count 4.88 10^6/uL (4.5-5.90) Hemoglobin 15.4 g/dL (13.5-17.5) Hematocrit 44.2 % (41.0-53.0) Mean Corpuscular Volume 90.4 fL (80.0-100.0) Mean Corpuscular Hemoglobin 31.5 pg (28.0-32.0) Mean Corpuscular Hemoglobin Concent 34.8 g/dL (32.0-36.0) Red Cell Distribution Width 13.0 % (11.8-14.3) Platelet Count 345 10^3/uL (140-450) Mean Platelet Volume 7.4 fL (6.9-10.8) Neutrophils (%) (Auto) 60.0 % (37.0-80.0) Lymphocytes (%) (Auto) 30.8 % (10.0-50.0) Monocytes (%) (Auto) 5.9 % (0.0-12.0) Eosinophils (%) (Auto) 2.6 % (0.0-7.0) Basophils (%) (Auto) 0.7 % (0.0-2.0) Neutrophils # (Auto) 5.0 10 ^3/uL (1.6-8.6) Lymphocytes # (Auto) 2.6 10 ^3/uL (0.4-5.4) Monocytes # (Auto) 0.5 10 ^3/uL (0-1.3) Eosinophils # (Auto) 0.2 10 ^3/uL (0-0.8) Basophils # (Auto) 0.1 10 ^3/uL (0-0.2) Nucleated Red Blood Cells 0.1 % Sodium Level 145 mmol/L (136-145) Potassium Level 4.2 mmol/L (3.5-5.1) Chloride Level 102 mmol/L (98-107) Carbon Dioxide Level 31 mmol/L (20-31) Anion Gap 12 (5-15) Blood Urea Nitrogen 8 mg/dL (9-23) Creatinine 0.86 mg/dL (0.700-1.30) Glomerular Filtration Rate Calc 93 mL/min (>90) BUN/Creatinine Ratio 9.3 (10.0-20.0) Serum Glucose 108 mg/dL (74-106) Calcium Level 9.8 mg/dL (8.7-10.4) Troponin I High Sensitivity 5 ng/L (</=54) Prothrombin Time 10.2 sec (9.3-11.8) Prothrombin Time INR 0.96 (0.9-1.15) Activated Partial Thromboplast Time 29.8 SEC (24.5-34.5) Magnesium Level 2.3 mg/dL (1.6-2.6) Total Bilirubin 0.3 mg/dL (0.2-1.0) Aspartate Amino Transferase (AST) 12 U/L (13-40) Alanine Aminotransferase (ALT) < 9 U/L (7-40) Alkaline Phosphatase 96 U/L (46-116) B-Type Natriuretic Peptide 33.69 pg/mL (0-100) Total Protein 7.5 g/dL (5.7-8.2) Albumin 4.5 g/dL (3.2-4.8) Other Laboratory Tests 09/04/25 04:52 Brief Hx & Hospital Course: 70-year-old male with a known history of hypertension, dyslipidemia, diabetes mellitus type 2, previous history of CVA was on Eliquis but currently on Plavix only presented to the hospital with a left facial left upper extremity and left lower extremity numbness. Patient was found to have multiple foci in the higher right frontal lobe on MRI brain. Neurology was consulted count gamal who recommended add aspirin including Plavix and statin. Patient is being discharged under stable condition with a close follow up as an outpatient with the PCP and Neurology Dr. Debby Naidu. Patient's daughter and were updated regarding current plan of care, they understand verbalized understanding and agreeable to plan. 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 Debby Naidu early next week. Medications: Aspirin added, continue Plavix and statin. Scheduled Aspirin (Aspir-Low), 81 MG PO DAILY Atorvastatin Calcium (Atorvastatin Calcium), 40 MG PO HS Clopidogrel Bisulfate (Clopidogrel), 1 TAB PO DAILY, (Reported) Lisinopril (Lisinopril), 1 TAB PO DAILY, (Reported) Metformin Hydrochloride (Metformin Hcl), 1 TAB PO BID Discontinued Medications Apixaban Base (Eliquis), 5 MG PO BID Discharge Statement: "Patient was advised to return to the ER or call 911 if any headaches, dizziness, shortness of breath, chest pain, abdominal pain, bleeding, fevers, or worsening of medical condition. Patient was counseled about treatment plan, medications, possible side effects, patientverbalized understanding. All questions were answered to the best of my ability. 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
[2025-09-04] MEDS: DOCUSATE SOD 100 MG CAP PO PRN (15:03)
--- NOTE | 2025-09-04 16:42 | DVHSR ---
APPROVED REPORT EXAM: Two-dimensional and M-mode echocardiogram with Doppler and color Doppler. Blood Pressure: 150/65 mmHg INDICATION CVA/TIA: RISK FACTORS Height: 5'6, Weight: 143 DIMENSIONS LVDd 4.5 (3.8-5.7cm) LA (2D) 3.7 (1.9-4.0cm) Aortic Root 2.5 (2.0-3.7cm) LVDs 3.1 (2.5-4.0cm) LA (MM) (1.9-4.0cm) Aortic Cusp Exc 1.6 (1.5-2.0cm) EF (%) 58.0 (55-70%) Rt. Atrium 3.9 (1.9-4.0cm) Asc. Aorta 2.7 cm IVSd 1.1 (0.7-1.1cm) RV (D) (1.8-2.4cm) PWd 1.1 (0.7-1.1cm) Mitral Valve Mitral Mitral Stenosis E wave 0.58m/s MV Mean GR. mmHg A wave 0.76m/s MV Peak GR. mmHg E/A ratio 0.8 2D MVA cm2 DECEL Time 274ms PRESS 1/2 Time ms Aortic Valve Aortic Valve Aortic Stenosis V1 0.91m/s AO Mean GR. mmHg V2 0.97m/s AO Peak GR. 4mmHg LVOT Diameter 2.0 (1.8-2.4cm) Doppler JOÃO 2.95cm2 Pulmonic Valve V2 1.07m/s Conclusion Technically good study. Sinus rhythm. Concentric LVH. Valves are normal. Left ventricular function is preserved at 60% with normal RV function. Dopplers unremarkable. No pericardial effusion masses
--- NOTE | 2025-09-05 07:23 | ECG ---
[facility] Test Date: 2025-09-02 Test Time: 15:27:41 Pat Name: RAMIREZ VALLES Department: Room: 0293T A Gender: M Sr. [employer]: LENORA : 1955 Requested By: DAVINA AVALOS Order Number: [id number] Reading MD: Tamir Seo Measurements Intervals [place] Rate: 75 P: 39 [place]: 151 QRS: 12 QRSD: 90 T: 17 QT: 385 QTc: 430 Interpretive Statements Sinus rhythm Left ventricular hypertrophy Anterior Q waves, possibly due to LVH Electronically Signed On 09-06-2025 15:40:04 PST by Tamir Seo Please click the below link to view image of tracing.
== END 2025-09-04 18:45 | disposition home or self-care (01) | DRG 66 ==
LOC: ER 15:09 → OVERFLOW 09-03 00:50 → TELE-WESTW 09-03 17:51
PROVIDERS: ADMIT Nurse Practitioner Family; ATTEND Nurse Practitioner Family
DX: I63.9 Cerebral infarction, unspecified (principal); E03.9 Hypothyroidism, unspecified; J32.0 Chronic maxillary sinusitis; E78.5 Hyperlipidemia, unspecified; E11.9 Type 2 diabetes mellitus without complications; I10 Essential (primary) hypertension; R29.810 Facial weakness; R47.81 Slurred speech; I67.2 Cerebral atherosclerosis; Z79.01 Long term (current) use of anticoagulants; Z79.02 Long term (current) use of antithrombotics/antiplatelets
CPT/HCPCS: 36415; 70450; 70496; 70498; 70551; 71045; 80048; 80053; 82962; 83735; 83880; 84484; 85025; 85610; 85730; 93005; 93306; 97110; 97116; 97163; 97530; 99291; G0378; J1815; J3490